=== PATIENT | male | born 1950 | race African-American/Black ===

== ENCOUNTER 2017-02-02 09:06 | Outpatient (CLI) | payer MEDICARE ==
[2017-02-02 09:28] LABS: Hematocrit 40.9 % (35.5-45.6); Hemoglobin 13.5 gm/dl (11.8-15.2); Mean Corpuscular HGB Conc 33 % (32-34); Mean Corpuscular Hemoglobin 32 pg (28-32); Mean Corpuscular Volume 97 fl (84-94); Platelet Count 251 K/mm3 (140-440); Red Blood Count 4.21 M/mm3 (3.65-5.03); Red Cell Distribution Width 13.5 % (13.2-15.2); White Blood Count 8.6 K/mm3 (4.5-11.0)
[2017-02-02 09:45] LABS: Alanine Aminotransferase 15 units/L (7-56); Albumin 4.2 g/dL (3.9-5); Albumin/Globulin Ratio 1.5 %; Alkaline Phosphatase 66 units/L (35-129); Anion Gap 14 mmol/L; Blood Urea Nitrogen 19 mg/dL (9-20); Calcium 8.6 mg/dL (8.4-10.2); Carbon Dioxide 27 mmol/L (22-30); Chloride 102.9 mmol/L (98-107); Glucose 98 mg/dL (75-100); Sodium 140 mmol/L (137-145)
[2017-02-02] MEDS ORDERED: NACL ONE (09:57)
--- NOTE | 2017-02-02 10:46 | Cat Scan Report ---
CT CHEST WITH CONTRAST INDICATION: Lung cancer followup. COMPARISON: 07/31/[address] FINDINGS: Chest CT performed following intravenous administration of 100 cc of Omnipaque 300 again demonstrates unremarkable heart and great vessels. No effusions. Approximately 7 mm pretracheal lymph node is stable, axial image 55, series 2. No other significant adenopathy. Patent central airway. Normal thyroid size. Right pectoralis muscle again absent. Approximately 1.6 cm right mid lung calcification along the major fissure again noted, axial image 92 with more superior mild scarring in the right upper lobe. Possible partial right-sided pneumonectomy with right upper lung volume slightly smaller than the left. Subtle 2-3 mm peripheral/subpleural left upper lobe noncalcified nodule is stable/benign, axial image 89, series 2. No new focal suspicious lung nodules or masses. Nonspecific distal esophageal wall prominence/thickening, not excluded for gastroesophageal reflux and/or hiatal hernia, amongst others. No significant abnormality in the imaged upper abdomen. Mild thoracic spine degenerative changes. CONCLUSION: No acute CT abnormality or significant interval change with various incidental findings, as above. Please correlate. Thank you for the opportunity to participate in this patient's care.
== END 2017-02-02 09:07 | disposition home or self-care (01) ==
LOC: CT 09:06
PROVIDERS: ATTEND Internal Medicine
DX: C34.91 Malignant neoplasm of unspecified part of right bronchus or lung (principal); J98.4 Other disorders of lung; M47.894 Other spondylosis, thoracic region; Z90.89 Acquired absence of other organs
CPT/HCPCS: 36415; 71260; 80053; 85027; Q9967

== ENCOUNTER 2017-05-11 09:12 | Outpatient (CLI) | payer MEDICARE ==
[2017-05-11 10:50] LABS: Blood Urea Nitrogen 24 mg/dL (9-20)
--- NOTE | 2017-05-11 13:53 | Cat Scan Report ---
CT ABDOMEN AND PELVIS WITH CONTRAST INDICATION: Dyspepsia. History of lung cancer. COMPARISON: 07/31/[address] FINDINGS: Abdomen and pelvis CT performed following oral contrast and intravenous administration of 100 cc of Omnipaque 300. LUNG BASES: Slight cardiomegaly. Motion artifact partly limits exam. Mild chest asymmetry inferiorly again seen as on axial image 4, series 2. Nonspecific distal esophageal wall prominence/thickening, not excluded for gastroesophageal reflux and/or hiatal hernia, amongst others. ABDOMEN: Liver, gallbladder, pancreas, adrenals, aorta, IVC and kidneys within normal limits. Few small bilateral renal cortical hypodensities measuring up to approximately 9 mm on the right and 7 mm on the left. Stable, somewhat small spleen. No ascites or size significant adenopathy. Opacified GI tract nonobstructive. Ileocolic anastomosis noted in the right hemiabdomen. Mild remainder ascending and transverse colon stool. PELVIS: Age-appropriate prostate may create a mild impression at the bladder base. Few small prostatic calcifications. Grossly unremarkable urinary bladder and the rectosigmoid. No free fluid or significant adenopathy. Mild multilevel spinal degenerative spurring and lower lumbar facet arthropathy. Mild bilateral SI joint degenerative spurring as well. CONCLUSION: No acute CT abnormality with few incidental findings, as above. Thank you for the opportunity to participate in this patient's care.
== END 2017-05-11 09:13 | disposition home or self-care (01) ==
LOC: CT 09:12
PROVIDERS: ATTEND Internal Medicine Gastroenterology
DX: K92.2 Gastrointestinal hemorrhage, unspecified (principal); K21.9 Gastro-esophageal reflux disease without esophagitis; I51.7 Cardiomegaly; K63.89 Other specified diseases of intestine; K30 Functional dyspepsia; N42.89 Other specified disorders of prostate; M12.88 Other specific arthropathies, not elsewhere classified, other specified site
CPT/HCPCS: 36415; 74177; 82565; 84520; Q9967

== ENCOUNTER 2017-05-17 07:12 | Day surgery (SDC) | payer MEDICARE ==
[~2017-05-17 07:12] MED LIST: ePHEDrine SULFATE ONE
[2017-05-17] MEDS: NACL 0.9% 1000 ML 1,000 ML IV SCH ×2 (08:31→10:30)
[2017-05-17] MEDS ORDERED: DIPRIVAN 10 MG/ML IV ONE ×3 (08:48→09:31)
--- NOTE | 2017-05-17 10:05 | Short Stay Summary ---
Short Stay Documentation - Allergies and Medications Current Medications: Allergies No Known Allergies Allergy (Unverified 10/06/13 15:42) Home Medications Medication Instructions Recorded Confirmed Last Taken Type Amoxicillin/K Clav Tab [Augmentin 1 tab PO BID 09/18/13 10/06/13 09/17/13 History 875MG TAB] Lovastatin [Mevacor] 20 mg PO DAILY 09/18/13 05/17/17 05/16/17 History Omeprazole [PriLOSEC] 40 mg PO DAILY 09/18/13 05/17/17 05/16/17 History Triamterene/Hydrochlorothiazid 1 each PO DAILY 09/18/13 05/17/17 05/17/17 History [Triamterene-Hctz 50-25 mg Cap] amLODIPine [Norvasc] 10 mg PO DAILY MDD BLOOD PRESSURE 09/18/13 05/17/17 History Active Medications Sodium Chloride (Nacl 0.9% 1000 Ml) 1,000 mls @ 50 mls/hr IV DIRECT MICKY Last Admin: 05/17/17 08:31 Dose: 50 mls/hr - Brief post op/procedure progress note Date of procedure: 05/17/17 Pre-op diagnosis: 1. Abdominal pain 2.LGI bleed 3. Colonoscopy Post-op diagnosis: same (EGD: GERD 2. Gastritis 3. Gastric polyps 4. Duodenitis Colonoscopy: internal hemorrhoids) Procedure: 1. EGD with biopsy 2. Colonoscopy with biopsy Anesthesia: MAC Findings: as above Surgeon: GENIE LOVE Estimated blood loss: none Pathology: list (1. antrum 2. Gastric polyp 3. ileocolic anastomosis 4, Rectal polyps) Specimen disposition: to lab Condition: stable - Disposition Condition at discharge: Stable Disposition: - TO HOME OR SELFCARE Short Stay Discharge Plan Activity: no restrictions Weight Bearing Status: Full Weight Bearing Diet: regular Follow up with: PRIMARY CARE, [Primary Care Provider] - 7 Days
--- NOTE | 2017-05-17 10:14 | Anesthesia Consultation ---
Anesthesia Consult and Med Hx Date of service: 05/17/17 - Airway Anesthetic Teeth Evaluation: Dentures (lower) ROM Head & Neck: Adequate Mental/Hyoid Distance: Adequate Mallampati Class: Class II Intubation Access Assessment: Possibly Difficult - Pulmonary Exam CTA: Yes - Cardiac Exam Cardiac Exam: RRR - Pre-Operative Health Status ASA Pre-Surgery Classification: ASA3 Proposed Anesthetic Plan: MAC - Pulmonary Hx Smoking: No Hx Sleep Apnea: No - Cardiovascular System Hx Hypertension: Yes (high cholesterol) - Central Nervous System Hx Seizures: No CVA: No Hx Psychiatric Problems: No - Gastrointestinal Hx Ulcer: No Hx Gastroesophageal Reflux Disease: Yes (CONTROLLED WITH MEDS) - Endocrine Hx Insulin Dependent Diabetes: No - Other Systems Hx Cancer: No (benign colon mass sp right hemicolectomy) Hx Obesity: No - Additional Comments Anesthesia Medical History Comments: NAC
--- NOTE | 2017-05-17 10:14 | Anesthesia Day of Surgery ---
Anesthesia Day of Surgery - Day of Surgery Patient Examined: Yes Patient H&P Reviewed: Yes Patient is NPO: Yes Beta Blockers: Yes
--- NOTE | 2017-05-17 10:16 | Post Anesthesia Evaluation ---
- Post Anesthesia Evaluation Patient Participated: Yes Airway Patent: Yes Stable Respiratory Function: Yes Temp > 96.8F: Yes Pain Manageable: Yes Adequeate Hydration: Yes Anesthesia Complications: No
[2017-05-17 10:31] VITALS: BP 119/68
== END 2017-05-17 07:13 | disposition home or self-care (01) ==
LOC: GIO 07:12
PROVIDERS: ATTEND Internal Medicine Gastroenterology
DX: K21.9 Gastro-esophageal reflux disease without esophagitis (principal); K29.70 Gastritis, unspecified, without bleeding; K29.80 Duodenitis without bleeding; K62.1 Rectal polyp; K31.7 Polyp of stomach and duodenum; I10 Essential (primary) hypertension; E78.00 Pure hypercholesterolemia, unspecified
CPT/HCPCS: 43239; 45380; 88305; 88342; J2704; J7030

== ENCOUNTER 2018-03-12 05:46 | Day surgery (SDC) | payer MEDICARE ==
[2018-03-12] MEDS ORDERED: NACL 0.9% 500 ML 500 ML IV SCH (07:00)
[2018-03-12 07:08] LABS: Hematocrit 40.5 % (35.5-45.6); Hemoglobin 13.5 gm/dl (11.8-15.2); Mean Corpuscular HGB Conc 33 % (32-34); Mean Corpuscular Hemoglobin 32 pg (28-32); Mean Corpuscular Volume 97 fl (84-94); Platelet Count 268 K/mm3 (140-440); Red Blood Count 4.17 M/mm3 (3.65-5.03); Red Cell Distribution Width 13.9 % (13.2-15.2)
[2018-03-12 07:17] LABS: INR 0.87 (0.87-1.13)
[2018-03-12 07:27] LABS: BUN/Creatinine Ratio 13; Blood Urea Nitrogen 12 mg/dL (9-20); Calcium 8.9 mg/dL (8.4-10.2); Hemolysis Index 2
[2018-03-12 08:58] LABS: Band Neutrophils # (Manual) 0.1 K/mm3; Basophils % (Manual) 0 % (0.0-1.8); Total Cells Counted 100
[2018-03-12 08:59] LABS: Platelet Estimate Consistent w Auto
[2018-03-12] MEDS ORDERED: HEPARIN/NS 5000 UNIT/500ML(CATH LAB) 1,000 ML IR ONE (09:45)
[2018-03-12] MEDS ORDERED: VERSED ONE (09:45)
[2018-03-12] MEDS ORDERED: HEPARIN 10,000 UNITS/10 ML ONE (09:45)
[2018-03-12] MEDS ORDERED: SUBLIMAZE ONE (09:46)
[2018-03-12] MEDS ORDERED: CALAN ONE (09:46)
[2018-03-12] MEDS ORDERED: NITROGLYCERIN SYRINGE 3 ML ONE (09:46)
[2018-03-12] MEDS: XYLOCAINE 2% INFILTRATI ONE ×2 (10:30→10:32)
--- NOTE | 2018-03-12 11:06 | Cardiac Catherization Report ---
CARDIAC CATHETERIZATION REASON FOR PROCEDURE: Chest pain. PROCEDURE: 1. Left heart catheterization. 2. Selective left and right coronary angiography. 3. Left ventricular angiography. 4. Sedation time, start 1027, end 1040. The patient was prepped and draped in a sterile fashion after informed consent. The right radial cath site was prepped and draped after a negative Mack's test. The right radial artery was entered using the Seldinger technique followed by placement of a hydrophilic 6-Emirati sheath. Selective left and right coronary angiogram was performed using a #3.5 left Lien and a #4 right Lien. The pigtail catheter was used for left ventricular angiography. The catheters were removed, sheath removed, and hemostasis achieved using TR band. The patient was returned to the postprocedure unit in stable condition. There were no complications. FINDINGS: HEMODYNAMICS: Left ventricular end-diastolic pressure was 15. Ascending aortic pressure was 114/61. There was no significant pressure gradient on pullback across the aortic valve. CORONARY ANGIOGRAPHY: The left main coronary artery was angiographically normal. The left anterior descending artery and its diagonal branches were free of significant disease. Mild luminal irregularities were noted in the proximal LAD. The circumflex artery was a large dominant system that was essentially angiographically normal. The right coronary artery was small, nondominant, and similarly free of significant disease. Left ventricular systolic function was within normal limits, ejection fraction 55-60%. CONCLUSION: 1. No significant coronary lesions, essentially angiographically near normal coronary arteries. 2. Left circumflex dominant system. 3. Normal left ventricular systolic function, ejection fraction 55-60%. RECOMMENDATIONS: Risk factor modification and medical therapy. JOB# [id number] CA/NTS
--- NOTE | 2018-03-12 12:57 | Discharge Summary ---
Short Stay Discharge Plan Activity: advance as tolerated Weight Bearing Status: Full Weight Bearing Diet: regular, low fat, low cholesterol, low salt Wound: keep clean and dry Special Instructions: no heavy lifting (3 days) Follow up with: GARDENIA MUÑOZ MD [Staff Physician] - 7 Days STEVEN FERRARA MD [Primary Care Provider] - 7 Days Forms: [facility] PCI D/C Instructions
[2018-03-12] MEDS ORDERED: NACL 0.9% 1000 ML 1,000 ML IV SCH (13:00)
[2018-03-12 14:30] VITALS: BP 117/69
== END 2018-03-12 05:47 | disposition home or self-care (01) ==
LOC: CATHLABREC 05:46
PROVIDERS: ATTEND Internal Medicine Cardiovascular Disease
DX: I25.10 Atherosclerotic heart disease of native coronary artery without angina pectoris (principal); I10 Essential (primary) hypertension; E78.00 Pure hypercholesterolemia, unspecified; K21.9 Gastro-esophageal reflux disease without esophagitis; Z79.899 Other long term (current) drug therapy; Z79.01 Long term (current) use of anticoagulants; Z79.82 Long term (current) use of aspirin; Z87.891 Personal history of nicotine dependence; Z98.890 Other specified postprocedural states; Z85.038 Personal history of other malignant neoplasm of large intestine
CPT/HCPCS: 36415; 80048; 85007; 85025; 85610; 85730; 93005; 93010; 93458; 99156; C1894; J1644; J2250; J3010; J7040; Q9967

== ENCOUNTER 2018-08-02 14:17 | Outpatient (CLI) | payer MEDICARE ==
[2018-08-02 15:05] LABS: Hematocrit 43.2 % (35.5-45.6); Hemoglobin 14.3 gm/dl (11.8-15.2); Mean Corpuscular HGB Conc 33 % (32-34); Mean Corpuscular Volume 99 fl (84-94); Platelet Count 271 K/mm3 (140-440); Red Blood Count 4.36 M/mm3 (3.65-5.03); Red Cell Distribution Width 13.5 % (13.2-15.2)
[2018-08-02 15:18] LABS: Alanine Aminotransferase 18 units/L (7-56); Albumin 4.4 g/dL (3.9-5); BUN/Creatinine Ratio 19; Blood Urea Nitrogen 17 mg/dL (9-20); Calcium 8.9 mg/dL (8.4-10.2); Chol/HDL Ratio 1.88 %; HDL Cholesterol 88 mg/dL (40-59); Hemolysis Index 3; LDL Cholesterol,Direct 84 mg/dL (50-130)
[2018-08-02 16:49] LABS: Anisocytosis 1+; Basophils % (Manual) 0 % (0.0-1.8); Macrocytosis 1+; Ovalocytes Few; Platelet Estimate Consistent w Auto; Total Cells Counted 100
--- NOTE | 2018-08-02 19:53 | XRay Report ---
FINAL REPORT EXAM: XR CHEST ROUTINE 2V HISTORY: PULMONARY NODULE TECHNIQUE: upright single view chest PRIORS: None. FINDINGS: Cardiac and mediastinal contours are unremarkable. Within the right upper lobe there is a nodular den sity measuring approximately 1 centimeter in transverse diameter. No prior studies are submitted for comparison comparison with prior exam is suggested. no pleural fluid collection seen. Pulmonary vasc ulature is unremarkable. IMPRESSION: Right upper lobe pulmonary nodule. Comparison with prior exams recommended if these could be obtained . If no prior studies available recommend further characterization with CT chest
== END 2018-08-02 14:18 | disposition home or self-care (01) ==
LOC: XRAY 14:17
PROVIDERS: ATTEND Internal Medicine
DX: J45.909 Unspecified asthma, uncomplicated (principal); I10 Essential (primary) hypertension; E78.00 Pure hypercholesterolemia, unspecified; K21.9 Gastro-esophageal reflux disease without esophagitis; Z87.891 Personal history of nicotine dependence
CPT/HCPCS: 36415; 71046; 80053; 80061; 82785; 84436; 84443; 85007; 85025

== ENCOUNTER 2018-10-01 06:30 | Outpatient (CLI) | payer MEDICARE ==
[2018-10-01 06:56] LABS: Hematocrit 43.8 % (35.5-45.6); Hemoglobin 14.6 gm/dl (11.8-15.2); Mean Corpuscular HGB Conc 33 % (32-34); Mean Corpuscular Volume 97 fl (84-94); Platelet Count 293 K/mm3 (140-440); Red Blood Count 4.51 M/mm3 (3.65-5.03); Red Cell Distribution Width 13.5 % (13.2-15.2)
[2018-10-01 07:13] LABS: Alanine Aminotransferase 20 units/L (7-56); Albumin 4.3 g/dL (3.9-5); BUN/Creatinine Ratio 21; Blood Urea Nitrogen 19 mg/dL (9-20); Calcium 8.9 mg/dL (8.4-10.2); Hemolysis Index 12
[2018-10-01 07:41] LABS: Free T4 (Free Thyroxine) 1.29 ng/dL (0.76-1.46)
--- NOTE | 2018-10-01 08:43 | Cat Scan Report ---
CT CHEST WITH CONTRAST: HISTORY: Right upper lobe lung nodule. COMPARISON: Chest x-ray dated 08/02/18. CT chest dated 02/02/17. TECHNIQUE: Helical CT in 1.25mm intervals following IV contrast. Sagittal and coronal reformatted images. FINDINGS: Thyroid gland: Normal. Tracheobronchial tree: Normal. Esophagus: Normal. Heart: Borderline heart size. Pericardium: Normal. Mediastinum: Normal. No suspicious mediastinal mass or adenopathy. Lung Robison: A 1.3 x 0.6 cm calcification in the right upper lobe is unchanged since 02/02/17. This appears to represent the abnormality seen on recent chest x-ray. The lungs are clear otherwise. No significant parenchymal disease or suspicious pulmonary nodule is identified. Pleural Spaces: Normal. Musculoskeletal: Mild thoracic spondylosis is stable. No evidence for suspicious bony lesion or fracture. 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 Correlate for surgical history. IMPRESSION: No suspicious pulmonary nodule is identified. A calcified right upper lobe nodule is identified which is unchanged since 2017.
== END 2018-10-01 06:31 | disposition home or self-care (01) ==
LOC: CT 06:30
PROVIDERS: ATTEND Internal Medicine
DX: R91.1 Solitary pulmonary nodule (principal); I10 Essential (primary) hypertension; E78.00 Pure hypercholesterolemia, unspecified; K21.9 Gastro-esophageal reflux disease without esophagitis; Z87.891 Personal history of nicotine dependence
CPT/HCPCS: 36415; 71260; 80053; 84439; 84443; 85027; Q9967

== ENCOUNTER 2020-09-09 07:03 | Outpatient (CLI) | payer MEDICARE ==
[2020-09-09 08:01] LABS: Hematocrit 42.5 % (35.5-45.6); Hemoglobin 14.1 gm/dl (11.8-15.2); Mean Corpuscular HGB Conc 33 % (32-34); Mean Corpuscular Volume 99 fl (84-94); Platelet Count 246 K/mm3 (140-440); Red Blood Count 4.31 M/mm3 (3.65-5.03); Red Cell Distribution Width 13.8 % (13.2-15.2)
[2020-09-09 08:26] LABS: Alanine Aminotransferase 18 units/L (7-56); Albumin 4.2 g/dL (3.9-5); BUN/Creatinine Ratio 23; Blood Urea Nitrogen 23 mg/dL (9-20); Hemolysis Index 6
--- NOTE | 2020-09-09 10:14 | Cat Scan Report ---
CT CHEST WITH CONTRAST INDICATION / CLINICAL INFORMATION: Follow-up lung calcified right upper lobe nodule. TECHNIQUE: Axial CT images were obtained through the chest after 60 IV contrast. Sagittal and coronal reformatte d images. All CT scans at this location are performed using CT dose reduction for ALARA by means of a utomated exposure control. COMPARISON: 10/01/2018 FINDINGS: HEART: No significant abnormality. THORACIC AORTA: No significant abnormality. MEDIASTINUM and BRISSA: No significant abnormality. LUNGS: Stable 1.5 x 0.6 cm calcified nodule in the right midlung. No suspicious pulmonary nodule or m ass has developed. No infiltrate. PLEURA: No significant pleural effusion. No pneumothorax. SKELETAL SYSTEM: No suspicious bony lesion is detected. UPPER ABDOMEN: No significant abnormality. 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 IMPRESSION: No change since 10/01/2018 exam. Signer Name: Attila Vigil Jr, MD Signed: 09/09/2020 10:10 AM Workstation Name: [id number]
== END 2020-09-09 07:04 | disposition home or self-care (01) ==
LOC: CT 07:03
PROVIDERS: ATTEND Internal Medicine
DX: R91.1 Solitary pulmonary nodule (principal)
CPT/HCPCS: 36415; 71260; 80053; 85027; Q9967